=== PATIENT | female | born 1975 | race Caucasian/White ===

== ENCOUNTER 2021-04-21 22:59 | Emergency (ER) | payer OTHER ==
[~2021-04-21] VITALS: Ht 157.5 cm; Wt 86.2 kg
[2021-04-22] MEDS ORDERED: KETO10TA2 PO (06:09)
== END 2021-04-22 06:17 | disposition home or self-care (01) ==
LOC: ER 22:59
DX: R10.2 Pelvic and perineal pain (principal)

== ENCOUNTER 2021-05-17 03:31 | Emergency (ER) | payer OTHER ==
[~2021-05-17] VITALS: Ht 162.6 cm; Wt 77.1 kg
[~2021-05-17 03:31] MED LIST: KETO10TA2 PO
[2021-05-17] MEDS ORDERED: KETO10TA2 PO (09:18)
== END 2021-05-17 09:23 | disposition home or self-care (01) ==
LOC: ER 03:31
DX: R07.89 Other chest pain (principal)